=== PATIENT | female | born 1965 | race Asian ===

== ENCOUNTER 2022-06-06 18:27 | Emergency (ER) | payer BC, OTHER ==
[~2022-06-06] VITALS: Ht 157.5 cm; Wt 66.8 kg
[2022-06-06] MEDS ORDERED: SITA50 PO (18:54)
[2022-06-06] MEDS ORDERED: LISI40TA9 PO (18:54)
[2022-06-06] MEDS ORDERED: EMPA10TA3 PO (18:54)
[2022-06-06] MEDS ORDERED: POTA10CA45 PO (18:54)
[2022-06-06] MEDS ORDERED: ATOR-2 PO (18:54)
[2022-06-06] MEDS ORDERED: GLIP10TA9 PO (18:54)
[2022-06-06] MEDS ORDERED: METO-391 PO (18:54)
[2022-06-06] MEDS ORDERED: HYDR25TA PO (18:54)
[2022-06-06] MEDS ORDERED: METF-446 PO (18:54)
[2022-06-06 20:00] VITALS: BP 124/64
== END 2022-06-06 21:10 | disposition still patient (30) ==
LOC: EMS 18:36
DX: E11.65 Type 2 diabetes mellitus with hyperglycemia (principal); Z53.21 Procedure and treatment not carried out due to patient leaving prior to being seen by health care provider

== ENCOUNTER 2023-11-16 14:28 | Emergency (ER) | payer BC, OTHER ==
[~2023-11-16] VITALS: Ht 157.5 cm; Wt 64.1 kg
[~2023-11-16 14:28] MED LIST: ATOR-2 PO; EMPA10TA3 PO; GLIP10TA9 PO; HYDR25TA PO; LISI40TA9 PO; METF-446 PO; METO-391 PO; POTA10CA95 PO; SITA50 PO
[2023-11-16 14:56] VITALS: BP 160/100; PULSE 86; RESP 16; TEMP 98.2
[2023-11-16 15:15] LABS: GLUCOMETER DEV NAME(LOC) ERT.5; GLUCOSE,POINT OF CARE 131 MG/DL (70-110)
[2023-11-16] MEDS ORDERED: IBUP-1554 PO (15:30)
== END 2023-11-16 15:42 | disposition home or self-care (01) ==
LOC: EMS 14:38
DX: M65.321 Trigger finger, right index finger (principal); E11.9 Type 2 diabetes mellitus without complications; I10 Essential (primary) hypertension; Z90.710 Acquired absence of both cervix and uterus; Z88.0 Allergy status to penicillin; Z88.5 Allergy status to narcotic agent; Z88.6 Allergy status to analgesic agent; Z98.890 Other specified postprocedural states
CPT/HCPCS: 82962; 99282